=== PATIENT | male | born 1950 | race Native Hawaiian/Other Pacific Islander ===

== ENCOUNTER 2017-03-04 09:54 | Outpatient (CLI) | payer OTHER | END 2017-03-04 19:16 | disposition home or self-care (01) | LOC: RESP 09:54 | DX: Z01.810 Encounter for preprocedural cardiovascular examination (principal); I10 Essential (primary) hypertension; R94.31 Abnormal electrocardiogram [ECG] [EKG] | CPT/HCPCS: 93306 ==

== ENCOUNTER 2017-12-23 11:00 | Outpatient (CLI) | payer OTHER | END 2017-12-23 22:56 | disposition home or self-care (01) | LOC: RAD 11:00 | DX: Z96.659 Presence of unspecified artificial knee joint (principal) ==

== ENCOUNTER 2018-01-03 10:56 | Outpatient (CLI) | payer OTHER | END 2018-01-03 23:35 | disposition home or self-care (01) | LOC: US 10:56 | DX: R60.0 Localized edema (principal) ==

== ENCOUNTER 2018-01-17 10:49 | Outpatient (CLI) | payer OTHER | END 2018-01-17 20:04 | disposition home or self-care (01) | LOC: RAD 10:49 | DX: M54.5 Low back pain (principal) ==

== ENCOUNTER 2018-04-18 07:50 | Outpatient (CLI) | payer OTHER ==
[2018-04-18 08:20] LABS: PLATELET COUNT 226 K/uL (142-355)
[2018-04-18 09:44] LABS: POTASSIUM 3.7 mmol/L (3.6-5.2)
== END 2018-04-18 23:00 | disposition home or self-care (01) ==
LOC: LABW 07:50
PROVIDERS: Internal Medicine
DX: I10 Essential (primary) hypertension (principal); Z12.5 Encounter for screening for malignant neoplasm of prostate
CPT/HCPCS: 36415; 80053; 80061; 81000; 84153; 84443; 84550; 85027

== ENCOUNTER 2019-08-30 13:08 | Outpatient (CLI) | payer OTHER ==
[2019-08-30 14:30] LABS: PLATELET COUNT 224 K/uL (142-355)
[2019-08-30 14:44] LABS: POTASSIUM 4.2 mmol/L (3.6-5.2)
== END 2019-08-30 22:29 | disposition home or self-care (01) ==
LOC: LAB 13:08
PROVIDERS: Internal Medicine
DX: Z00.00 Encounter for general adult medical examination without abnormal findings (principal); Z12.5 Encounter for screening for malignant neoplasm of prostate; Z79.899 Other long term (current) drug therapy
CPT/HCPCS: 80053; 80061; 81000; 84153; 84439; 84443; 84550; 85027

== ENCOUNTER 2019-09-18 09:29 | Outpatient (CLI) | payer OTHER | END 2019-09-18 22:56 | disposition home or self-care (01) | LOC: RAD 09:29 | DX: J40 Bronchitis, not specified as acute or chronic (principal) ==

== ENCOUNTER 2020-04-30 13:53 | Emergency (ER) | payer OTHER ==
[~2020-04-30] VITALS: Ht 182.9 cm; Wt 127.0 kg
[2020-04-30 14:02] VITALS: TEMP 99.4
[2020-04-30 15:22] LABS: PLATELET COUNT 272 K/uL (142-355)
[2020-04-30 15:26] LABS: POTASSIUM 3.9 mmol/L (3.6-5.2)
[2020-04-30 15:55] LABS: PARTIAL THROMBOPLASTIN TIME 27.9 SECONDS (24.5-33.6)
[2020-04-30 18:00] VITALS: BP 131/81
== END 2020-04-30 19:01 | disposition short-term general hospital (02) ==
LOC: ED 13:53
PROVIDERS: Family Medicine
DX: I62.00 Nontraumatic subdural hemorrhage, unspecified (principal)
CPT/HCPCS: 80053; 81000; 85027; 85610; 85730; 99284